=== PATIENT | female | born 1975 | race Two or more races ===

== ENCOUNTER 2017-09-30 10:22 | Emergency (ER) | payer OTHER ==
[~2017-09-30] VITALS: Ht 162.6 cm; Wt 57.2 kg
[~2017-09-30 10:22] MED LIST: CARDIZEM30 MG; IMIPRAMINE HCL10 MG
[2017-09-30] MEDS ORDERED: CIPRO500 MG PO (15:51)
[2017-09-30] MEDS ORDERED: INTESTINEX680 M1 PO (15:51)
[2017-09-30] MEDS ORDERED: ZANTAC150 MG PO (15:51)
[2017-09-30] MEDS ORDERED: FLAGYL500MG PO (15:51)
== END 2017-09-30 21:21 | disposition home or self-care (01) ==
LOC: ER 10:22
DX: K57.92 Diverticulitis of intestine, part unspecified, without perforation or abscess without bleeding (principal); R10.84 Generalized abdominal pain

== ENCOUNTER 2017-10-04 22:42 | Inpatient (IN) | payer OTHER ==
[~2017-10-04] VITALS: Ht 162.6 cm; Wt 125.0 kg
[~2017-10-04 22:42] MED LIST changes: +CIPRO500 MG PO; +FLAGYL500MG PO; +INTESTINEX680 M1 PO; +ZANTAC150 MG PO
[2017-10-04] MEDS ORDERED: TRILEPTAL150 MG (22:51)
== END 2017-10-07 19:30 | disposition home or self-care (01) | DRG 392 ==
LOC: ER 22:42 → SEC-K 10-05 14:06 → MEDI 10-05 14:06
DX: K57.32 Diverticulitis of large intestine without perforation or abscess without bleeding (principal)

== ENCOUNTER 2021-11-06 13:29 | Emergency (ER) | payer OTHER ==
[~2021-11-06] VITALS: Ht 162.6 cm; Wt 68.0 kg
[~2021-11-06 13:29] MED LIST changes: +TRILEPTAL150 MG
[2021-11-06] MEDS ORDERED: DICLOFENAC SODI75 MG PO (21:01)
== END 2021-11-06 21:13 | disposition home or self-care (01) ==
LOC: ER 13:29
DX: R10.31 Right lower quadrant pain (principal); N83.201 Unspecified ovarian cyst, right side; D25.9 Leiomyoma of uterus, unspecified; Z20.822 Contact with and (suspected) exposure to COVID-19